=== PATIENT | male | born 1995 | race Caucasian/White ===

== ENCOUNTER 2017-11-30 10:01 | Emergency (ER) | payer SELFPAY ==
[2017-11-30 10:07] VITALS: BP 137/85
[2017-11-30] MEDS ORDERED: ALBUTEROL SULFATE 0.083% NEB 2.5 MG/3 ML AMPUL NEB ONE (10:54)
--- NOTE | 2017-11-30 11:47 | ER Document Report ---
ED Respiratory Problem - General Chief Complaint: Chest Congestion Stated Complaint: EYE PAIN Time Seen by Provider: 11/30/17 10:39 Mode of Arrival: Ambulatory Information source: Patient Notes: Patient is a 22-year-old male who presents to the ER today for congestion 5 days that is worsening, tightness in his chest with mild cough, waking up this morning with both eyes crusted shut, brown/clear drainage from both of his ears. Patient states that he can still hear out of both of his ears but is "just muffled." He denies any fevers but admits to some chills and body aches. Patient denies any history of asthma, denies wheezing or shortness of breath. TRAVEL OUTSIDE OF THE [place] IN LAST 30 DAYS: No - Related Data Allergies/Adverse Reactions: pollen extracts Adverse Reaction (Verified 11/30/17 10:34) Past Medical History - General Information source: Patient - Social History Smoking Status: Former Smoker Frequency of alcohol use: None Drug Abuse: None Family History: Reviewed & Not Pertinent Patient has suicidal ideation: No Patient has homicidal ideation: No Renal/ Medical History: Denies: Hx Peritoneal Dialysis GI Medical History: Reports: Hx Gastroesophageal Reflux Disease Past Surgical History: Reports: Hx Tonsillectomy - tonsils, uvula, adenoids - Immunizations Immunizations up to date: Yes Hx Diphtheria, Pertussis, Tetanus Vaccination: Yes Review of Systems - Review of Systems Constitutional: See HPI EENT: See HPI Cardiovascular: No symptoms reported Respiratory: See HPI Gastrointestinal: No symptoms reported Genitourinary: No symptoms reported Male Genitourinary: No symptoms reported Musculoskeletal: No symptoms reported Skin: No symptoms reported Hematologic/Lymphatic: No symptoms reported Neurological/Psychological: No symptoms reported Physical Exam - Vital signs Vitals: Temp Pulse Resp BP Pulse Ox 98.5 F 93 17 137/85 H 100 11/30/17 10:06 11/30/17 10:06 11/30/17 10:06 11/30/17 10:11/30/17 10:06 - Notes Notes: PHYSICAL EXAMINATION: GENERAL: Mildly ill-appearing, but in no acute distress. HEAD: Atraumatic, normocephalic. EYES: Pupils equal round and reactive to light, extraocular movements intact, sclera anicteric, conjunctiva erythematous bilaterally with some yellow crust bilaterally ENT: ear canals without erythema or foreign body, TMs pearly scanlon with good bony landmarks, nares with mucoid discharge , oropharynx erythematous without enlarged tonsils without exudates. Moist mucous membranes. maxillary and frontal sinuses tender to palpation NECK: Normal range of motion, supple without lymphadenopathy LUNGS: CTAB and equal. No wheezes rales or rhonchi. HEART: Regular rate and rhythm without murmurs EXTREMITIES: Normal range of motion, no pitting edema. No cyanosis. NEUROLOGICAL: Cranial nerves grossly intact. Normal sensory/motor exams. PSYCH: Normal mood, normal affect. SKIN: Warm, Dry, normal turgor, no rashes or lesions noted Course - Re-evaluation Re-evalutation: 11/30/17 11:44 Patient given breathing treatment here for chest tightness which did resolve. Patient will be sent home on antibiotic as well as antibiotic eyedrops. - Vital Signs Vital signs: Temp Pulse Resp BP Pulse Ox 98.5 F 93 17 137/85 H 100 11/30/17 10:06 11/30/17 10:06 11/30/17 10:06 11/30/17 10:06 11/30/17 10:06 Discharge - Discharge Clinical Impression: Sinusitis Qualifiers: Sinusitis location: unspecified location Chronicity: acute Recurrence: non- recurrent Qualified Code(s): J01.90 - Acute sinusitis, unspecified Conjunctivitis Qualifiers: Conjunctivitis type: unspecified Laterality: bilateral Qualified Code(s): H10.9 - Unspecified conjunctivitis Condition: Stable Disposition: HOME, SELF-CARE Instructions: Conjunctivitis ([facility]), Sinusitis ([facility]) Additional Instructions: Return immediately for any new or worsening symptoms. Follow up with primary care provider, call tomorrow to make followup appointment. Prescriptions: Amoxicillin 500 mg PO TID #300 ml Polymyxin B Sulfate/Tmp [Polytrim Oph Soln 10 ml] 1 dose OP ASDIR PRN #1 bottle PRN Reason: Forms: Return to Work
[2017-11-30] MEDS ORDERED: ALBUTEROL SULFATE HFA (90 MCG/PUFF) 8 GM MDI (1 MDI/ER DISP) IH PRN (11:56)
== END 2017-11-30 12:00 | disposition home or self-care (01) ==
LOC: ER 10:01
DX: J01.90 Acute sinusitis, unspecified (principal); H10.9 Unspecified conjunctivitis; R07.89 Other chest pain; R05 Cough; H92.13 Otorrhea, bilateral; R68.83 Chills (without fever); Z87.891 Personal history of nicotine dependence
CPT/HCPCS: 94640; 99283; J3490